=== PATIENT | male | born 1960 | race African-American/Black ===

== ENCOUNTER 2017-03-26 19:31 | Inpatient (IN) | payer MEDICAID ==
--- NOTE | 2017-03-26 19:38 | ED Physician Chart ---
ED Chief Complaint/HPI - Patient Information Date Seen:: 03/26/17 Time Seen:: 19:38 Chief Complaint:: Abnormal labs History of Present Illness:: 56 yo male was brought from [facility] to ER for evaluation of abnormal labs (Hb 7.5 and K 3). 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 He had a right arm PICC line and a G-tube. He reported urinary frequency. He denied any cough or fever. ED Review of Systems - Review of Systems General/Constitutional: No fever, Weakness Skin: No skin lesions Head: No headache Eyes: No pain ENT: No nasal drainage, Sore throat Neck: Neck pain Cardio Vascular: No chest pain Pulmonary: No SOB GI: No nausea, No vomiting Musculoskeletal: No bone or joint pain Neurological: No focal symptoms ED Past Medical History - Past Medical History Past Medical History: PUD/GERD, Other (mastoiditis, pharyngeal squamous cell carcinoma, spondylosis) Social History: Smoker (former smoker), No Alcohol, No Drug Use Psychiatricy History: Depression Family Medical History - Family Member Mother Ethnicity: Non- ED Physical Exam - Physical Examination General/Constitutional: Awake Eyes: PERRL Skin: No ecchymosis ENMT: Nasal exam nl Neck: No nuchal rigidity Respiratory: No Wheeze/Rhonchi/Rales Cardio Vascular: RRR, No murmur, gallop, rubs, NL S1 S2 GI: No tenderness/rebounding/guarding Extremities: normal strength in all extremities Neuro/Psych: No focal deficits ED Labs/Radiology/EKG Results - Radiology Results Results: CXR: no focal consolidation ED Assessment - Assessment General Assessment: Leukocytosis Normocytic anemia Malnutrition Hypokalemia Metastatic pharyngeal squamous cell carcinoma Assessment/Comments:: CBC, CMP, UA KCL 40mEq x 1 NS 1L IV bolus Vancomycin Admit to med surg ED Septic Shock - . Is Septic Shock (SBP<90, OR Lactate>4 mmol\L) present?: No ED Reassessment (Disposition) - Reassessment Reassessment Condition:: Improved - Patient Disposition Discharge/Transfer:: Acute Care w/in this hosp Admitting Medical Physician:: Maicol Holley ED Discharge Plan - Patient Disposition Admit/Discharge/Transfer: Acute Care w/in this hosp Condition at Disposition: Stable
[2017-03-26 20:11] LABS: % BASOPHILS 0.2 % (0.0-2.0); % EOSINOPHILS 0.3 % (0.0-5.0); % MONOCYTES 4.5 % (2.0-10.0); EOSINOPHILE ABSOLUTE 0.1 Th/cmm (0.1-0.4); HEMATOCRIT 26.6 % (41.0-60); MEAN CELL VOLUME 86.1 fl (80-99); MEAN CORPUSCULAR HEMOGLOBIN 29.2 pg (26.0-30.0); MEAN CORPUSCULAR HGB CONC 33.9 pg (28.0-36.0); MEAN PLATELET VOLUME 6.6 fl; MONOCYTE ABSOLUTE 0.8 Th/cmm (0.3-1.0); NEUTROPHILE ABSOLUTE 15.5 Th/cmm (1.8-8.0); PLATELET COUNT 176 Th/cmm (150-400); RED BLOOD COUNT 3.09 Mil/cmm (4.30-5.70); RED CELL DISTRIBUTION WIDTH 14.6 % (11.5-20.0)
[2017-03-26 20:19] LABS: WHITE BLOOD COUNT 18.4 Th/cmm (4.8-10.8)
[2017-03-26 20:22] LABS: ALB/GLOB RATIO 1.2 (1.0-1.8); ALBUMIN 3.6 gm/dL (4.2-5.5); ALKALINE PHOSPHATASE 103 U/L (34-104); ANION GAP 11.2 (7.0-16.0); BILIRUBIN,TOTAL 0.2 mg/dL (0.3-1.0); BUN - UREA NITROGEN 12 mg/dL (7-25); CALCIUM SERUM 8.4 mg/dL (8.6-10.3); CARBON DIOXIDE 29.9 mEq/L (21.0-31.0); CHLORIDE 100 mEq/L (98-107); CREATININE - SERUM 1.1 mg/dL (0.7-1.3); GFR AFRICAN-AMERICAN > 60.0 ml/min (>90); GFR NON AFRICAN-AMERICAN > 60.0 ml/min; GLUCOSE 103 mg/dL (70-105); POTASSIUM SERUM 3.1 mEq/L (3.5-5.1); SGOT 9 U/L (13-39); SGPT/ALT 7 U/L (7-52); SODIUM SERUM 138 mEq/L (136-145); TOTAL PROTEIN,SERUM 6.7 gm/dL (6.0-8.3)
[2017-03-26] MEDS ORDERED: Potassium Chloride 20 mEq ER Tab PO ONE ×2 (20:42)
[2017-03-26] MEDS ORDERED: Sodium Chloride 0.9% 1,000 ML IV SCH ×2 (20:45→21:00)
[2017-03-26] MEDS ORDERED: Magnesium Hydroxide (MOM) 30 mL UDC PO PRN (23:05)
[2017-03-26] MEDS ORDERED: Morphine 10 mg/5 ml 5mL UDC PO PRN (23:05)
[2017-03-27 01:47] VITALS: BP 144/72
[2017-03-27 03:53] LABS: URINE MICROSCOPIC INDICATED? YES; URINE SOURCE CLEAN C
[2017-03-27 03:59] LABS: URINE BILIRUBIN NEGATIVE (NEGATIVE); URINE BLOOD NEGATIVE (NEGATIVE); URINE GLUCOSE (UA) NEGATIVE (NEGATIVE); URINE KETONE NEGATIVE (NEGATIVE); URINE LEUKOCYTE ESTERASE NEGATIVE (NEGATIVE); URINE NITRATE NEGATIVE (NEGATIVE); URINE PH 6.5 (4.6 - 8.0); URINE PROTEIN TRACE mg/dL (NEGATIVE); URINE UROBILINOGEN 0.2 E.U./dL (0.2 - 1.0)
[2017-03-27 04:00] LABS: URINE CLARITY HAZY (CLEAR); URINE COLOR YELLOW
[2017-03-27 04:09] LABS: URINE EPITHELIAL CELLS OCCASIONAL /lpf (FEW)
[2017-03-27 04:10] LABS: URINE BACTERIA FEW /hpf (NONE SEEN)
[2017-03-27 05:07] LABS: % BASOPHILS 0.2 % (0.0-2.0); % EOSINOPHILS 0.3 % (0.0-5.0); % MONOCYTES 4.9 % (2.0-10.0); % NEUTROPHILS 84.6 % (40.0-80.0); HEMATOCRIT 25.3 % (41.0-60); HEMOGLOBIN 8.4 gm/dL (12-16); LYMPHOCYTE ABSOLUTE 1.6 Th/cmm (1.5-3.0); MEAN CELL VOLUME 86.5 fl (80-99); MEAN CORPUSCULAR HEMOGLOBIN 28.8 pg (26.0-30.0); MEAN CORPUSCULAR HGB CONC 33.3 pg (28.0-36.0); MEAN PLATELET VOLUME 6.2 fl; MONOCYTE ABSOLUTE 0.8 Th/cmm (0.3-1.0); NEUTROPHILE ABSOLUTE 13.6 Th/cmm (1.8-8.0); PLATELET COUNT 194 Th/cmm (150-400); RED BLOOD COUNT 2.93 Mil/cmm (4.30-5.70); RED CELL DISTRIBUTION WIDTH 14.5 % (11.5-20.0)
[2017-03-27 06:22] LABS: ALB/GLOB RATIO 1.2 (1.0-1.8); ALBUMIN 3.3 gm/dL (4.2-5.5); ALKALINE PHOSPHATASE 94 U/L (34-104); ANION GAP 10.6 (7.0-16.0); BILIRUBIN,TOTAL 0.2 mg/dL (0.3-1.0); CALCIUM SERUM 7.4 mg/dL (8.6-10.3); CARBON DIOXIDE 29.5 mEq/L (21.0-31.0); CHLORIDE 101 mEq/L (98-107); CREATININE - SERUM 0.8 mg/dL (0.7-1.3); GFR AFRICAN-AMERICAN > 60.0 ml/min (>90); GFR NON AFRICAN-AMERICAN > 60.0 ml/min; GLUCOSE 99 mg/dL (70-105); POTASSIUM SERUM 4.1 mEq/L (3.5-5.1); SGOT 8 U/L (13-39); SGPT/ALT 6 U/L (7-52); SODIUM SERUM 137 mEq/L (136-145)
[2017-03-27 07:21] LABS: BUN - UREA NITROGEN 9 mg/dL (7-25)
[2017-03-27] MEDS ORDERED: Pantoprazole 40 mg EC Tab PO SCH (09:00)
[2017-03-27] MEDS ORDERED: Nicotine 7 mg/24 hr Tdm TD SCH (09:00)
[2017-03-27] MEDS ORDERED: Non-Formulary Item 1 EA (Vitamin B Complex [Vitamin B Complex] 1 TAB) PO SCH (09:00)
[2017-03-27] MEDS ORDERED: Vitamin B Complex w/Vitamin C Tab PO SCH (09:00)
--- NOTE | 2017-03-27 09:14 | Diagnostic Imaging Report ---
CHEST X-RAY: AP view INDICATION: Shortness of breath COMPARISON: None FINDINGS: Right PICC line is seen with tip in SVC. Chronic lung changes are noted. There is no focal consolidation or pleural effusions The heart is normal in size. The osseous structures demonstrate no acute abnormalities. IMPRESSION: Chronic lung changes with no focal consolidation or evidence of CHF. Right PICC line with tip in SVC.
--- NOTE | 2017-03-27 11:19 | History and Physical ---
History of Present Illness - HPI Chief Complaint: Low hemoglobin and high WBC HPI: This is a patient with Hx of scamous cell carcinoma in chemo. I follow this patient at [facility], I received a phone call from [facility] stating that Hgb was 7.5, an order to tranfered patient to ER was done for transfusion. n In ER labs were done and was found Hgb above 8 but high WBC, he was hospitalized for IV antibiotics. Vital Signs: Last Vital Signs Temp 98.9 F 03/27/17 04:00 Pulse 88 03/27/17 04:00 Resp 20 03/27/17 04:00 BP 144/72 03/27/17 01:47 Pulse Ox 98 03/27/17 04:00 Past Medical History Cardiovascular: Report: No Pertinent Hx Pulmonary: Report: No Pertinent Hx [employer]: Report: No Pertinent Hx GI: Report: No Pertinent Hx Psych: Report: No Pertinent Hx Musculoskeletal: Report: No Pertinent Hx Rheumatologic: Report: No pertinent Hx Infectious Disease: Report: No Pertinent Hx Renal/: Report: No Pertinent Hx Endocrine: Report: No Pertinent Hx Dermatology: Report: No Pertinent Hx - Past Surgical History Past Surgical History: Other (Metastatic Scamous cell carcinoma of troath) Family Medical History - Family Member Mother History Unknown: Yes Ethnicity: Non- Social History Smoke: No Alcohol: None Drugs: None Lives: [facility] Domestic Violence: Negative - Medications Home Medications: Home Medication Medication Instructions Recorded Type Acetaminophen [Tylenol Extra 2 tab PO Q8HR PRN 03/26/17 History Strength] Acetaminophen [Tylenol] 650 mg PO Q4HR PRN 03/26/17 History Cyanocobalamin (Vitamin B-12) 1,000 mcg PO DAILY 03/26/17 History [Vitamin B-12] Loperamide [Imodium] 2 mg PO Q6HR PRN 03/26/17 History Magnesium Hydroxide [Milk of 30 ml PO DAILY PRN 03/26/17 History Magnesia] Morphine [Morphine*] 10 mg PO Q6HR PRN 03/26/17 History Nicotine 7 mg/24 hr [Nicotine 1 patch TD DAILY 03/26/17 History Transdermal System] Omeprazole 40 mg PO DAILY 03/26/17 History Ondansetron [Zofran ODT] 4 mg PO Q6HR PRN 03/26/17 History Sertraline [Zoloft] 50 mg PO DAILY 03/26/17 History Vitamin B Complex 1 tab PO DAILY 03/26/17 History cefTRIAXone [Rocephin] 1 gm IV Q12HR 03/26/17 History - Allergies Allergies/Adverse Reactions: Allergies Allergy/AdvReac Type Severity Reaction Status Date / Time No Known Allergies Allergy Verified 03/26/17 19:47 Review of Systems - Review of Systems Constitutional: Report: Weakness Eyes: Report: No Significant ENT: Report: Throat Pain Respiratory: Report: No Significant Cardiovascular: Report: No Significant Gastrointestinal: Report: No Significant Genitourinary: Report: No Significant Musculoskeletal: Report: No Significant Skin: Report: No Significant Neurological: Report: Weakness Physical Exam - Physical Exam HEENT: Report: Other ([place]roath cancer) Neck: Report: Lymphadenopathy noted on the right side Cardiovascular Systems: Report: Regular, Rate and Rhythm Respiratory: Report: Breath Sounds are within normal limits Abdomen: Report: Non-tender to palpation Back: Report: Inspection of back is within normal limits. Extremities: Report: Non-tender to palpation. Skin: Report: Color of skin is within normal limits Neuro/Psych: Report: Mood affect is within normal limits - Lab Results All Lab Results last 24 hours: Laboratory Results - last 24 hr 03/26/17 03/27/17 03/27/17 20:58 00:50 05:00 WBC 16.0 H RBC 2.93 L Hgb 8.4 L Hct 25.3 L MCV 86.5 MCH 28.8 MCHC Differential 33.3 RDW 14.5 Plt Count 194 MPV 6.2 Neutrophils % 84.6 H Lymphocytes % 10.0 L Monocytes % 4.9 Eosinophils % 0.3 Basophils % 0.2 Sodium Potassium Chloride Carbon Dioxide Anion Gap BUN Creatinine Est GFR ( Amer) Est GFR (Non-Af Amer) BUN/Creatinine Ratio Glucose Whole Bld Lactic Acid 1.85 Calcium Total Bilirubin AST ALT Alkaline Phosphatase Total Protein Albumin Globulin Albumin/Globulin Ratio Urine Source CLEAN C Urine Color YELLOW Urine Clarity HAZY Urine pH 6.5 Ur Specific [place] 1.020 Urine Protein TRACE Urine Glucose (UA) NEGATIVE Urine Ketones NEGATIVE Urine Blood NEGATIVE Urine Nitrate NEGATIVE Urine Bilirubin NEGATIVE Urine Urobilinogen 0.2 Ur Leukocyte Esterase NEGATIVE Urine RBC 2-5 H Urine WBC 2-5 H Ur Epithelial Cells OCCASIONAL Urine Bacteria FEW 03/27/17 05:00 WBC RBC Hgb Hct MCV MCH MCHC Differential RDW Plt Count MPV Neutrophils % Lymphocytes % Monocytes % Eosinophils % Basophils % Sodium 137 Potassium 4.1 Chloride 101 Carbon Dioxide 29.5 Anion Gap 10.6 BUN 9 Creatinine 0.8 Est GFR ( Amer) > 60.0 Est GFR (Non-Af Amer) > 60.0 BUN/Creatinine Ratio 11.3 Glucose 99 Whole Bld Lactic Acid Calcium 7.4 L Total Bilirubin 0.2 L AST 8 L ALT 6 L Alkaline Phosphatase 94 Total Protein 6.0 Albumin 3.3 L Globulin 2.7 Albumin/Globulin Ratio 1.2 Urine Source Urine Color Urine Clarity Urine pH Ur Specific [place] Urine Protein Urine Glucose (UA) Urine Ketones Urine Blood Urine Nitrate Urine Bilirubin Urine Urobilinogen Ur Leukocyte Esterase Urine RBC Urine WBC Ur Epithelial Cells Urine Bacteria - Assessment Assessment: Patient is awake, alert, calm in no acute distress. WBC improved. Dx: Leukocytosis, Metastatic scamous cell carcinoma, mastoiditis - Plan Plan: Patient is continue with SNF meds, on Vanco and sozyn. Patient will be discharge today.
[2017-03-27] MEDS ORDERED: VTE Chemical Prophylaxis Screen/Admission MC PRN (14:00)
--- NOTE | 2017-03-28 10:23 | Discharge Summary ---
General Discharge Summary - Discharge Summary Date of Admission: 03/26/17 Admitting Diagnosis: Leukocytosis, scamous cell carcinoma Discharge Date: 03/27/17 Discharge Diagnosis: Leukocytosis, [place] scamous cell carcinoma Laboratory Findings: Laboratory Tests 03/26/17 03/27/17 03/27/17 20:58 00:50 05:00 WBC 16.0 H RBC 2.93 L Hgb 8.4 L Hct 25.3 L MCV 86.5 MCH 28.8 MCHC Differential 33.3 RDW 14.5 Plt Count 194 MPV 6.2 Neutrophils % 84.6 H Lymphocytes % 10.0 L Monocytes % 4.9 Eosinophils % 0.3 Basophils % 0.2 Sodium Potassium Chloride Carbon Dioxide Anion Gap BUN Creatinine Est GFR ( Amer) Est GFR (Non-Af Amer) BUN/Creatinine Ratio Glucose Whole Bld Lactic Acid 1.85 Calcium Total Bilirubin AST ALT Alkaline Phosphatase Total Protein Albumin Globulin Albumin/Globulin Ratio Urine Source CLEAN C Urine Color YELLOW Urine Clarity HAZY Urine pH 6.5 Ur Specific [place] 1.020 Urine Protein TRACE Urine Glucose (UA) NEGATIVE Urine Ketones NEGATIVE Urine Blood NEGATIVE Urine Nitrate NEGATIVE Urine Bilirubin NEGATIVE Urine Urobilinogen 0.2 Ur Leukocyte Esterase NEGATIVE Urine RBC 2-5 H Urine WBC 2-5 H Ur Epithelial Cells OCCASIONAL Urine Bacteria FEW 03/27/17 05:00 WBC RBC Hgb Hct MCV MCH MCHC Differential RDW Plt Count MPV Neutrophils % Lymphocytes % Monocytes % Eosinophils % Basophils % Sodium 137 Potassium 4.1 Chloride 101 Carbon Dioxide 29.5 Anion Gap 10.6 BUN 9 Creatinine 0.8 Est GFR ( Amer) > 60.0 Est GFR (Non-Af Amer) > 60.0 BUN/Creatinine Ratio 11.3 Glucose 99 Whole Bld Lactic Acid Calcium 7.4 L Total Bilirubin 0.2 L AST 8 L ALT 6 L Alkaline Phosphatase 94 Total Protein 6.0 Albumin 3.3 L Globulin 2.7 Albumin/Globulin Ratio 1.2 Urine Source Urine Color Urine Clarity Urine pH Ur Specific [place] Urine Protein Urine Glucose (UA) Urine Ketones Urine Blood Urine Nitrate Urine Bilirubin Urine Urobilinogen Ur Leukocyte Esterase Urine RBC Urine WBC Ur Epithelial Cells Urine Bacteria Hospital Course: Patient was admitted and started in IV NS, Vanco and Zosyn, regular diet and continue with SNF meds. Same day patient was DC to SNF to continue with IV AB. Treatment: IV NS, AB, SNF meds Disposition: Discharge/Transfered to SNF Home Medications: Home Medication Medication Instructions Recorded Type Acetaminophen [Tylenol Extra 2 tab PO Q8HR PRN 03/26/17 History Strength] Acetaminophen [Tylenol] 650 mg PO Q4HR PRN 03/26/17 History Cyanocobalamin (Vitamin B-12) 1,000 mcg PO DAILY 03/26/17 History [Vitamin B-12] Loperamide [Imodium] 2 mg PO Q6HR PRN 03/26/17 History Magnesium Hydroxide [Milk of 30 ml PO DAILY PRN 03/26/17 History Magnesia] Morphine [Morphine*] 10 mg PO Q6HR PRN 03/26/17 History Nicotine 7 mg/24 hr [Nicotine 1 patch TD DAILY 03/26/17 History Transdermal System] Omeprazole 40 mg PO DAILY 03/26/17 History Ondansetron [Zofran Odt] 4 mg PO Q6HR PRN 03/26/17 History Sertraline [Zoloft] 50 mg PO DAILY 03/26/17 History Vitamin B Complex 1 tab PO DAILY 03/26/17 History cefTRIAXone [Rocephin] 1 gm IV Q12HR 03/26/17 History Piperacillin Sodium/Tazobact 3.375 gm IV Q6HR vial 03/27/17 Rx [Zosyn] Vancomycin HCl [Vancomycin] 1.25 gm IV Q12HR vial 03/27/17 Rx Vitamin B Complex w/Vitamin C 1 tab PO DAILY tab 03/27/17 Rx Activity: As Tolerated Discharge Diet: 2 Gram Sodium Consults and Follow-Up: not on staff,PCP is [Primary Care Provider] - Consulting Speciality: Oncology Instructions: Hypokalemia, Leukocytosis
== END 2017-03-27 16:55 | disposition home or self-care (01) | DRG 663 ==
LOC: ER 19:31 → MSI 20:35
PROVIDERS: ADMIT General Practice; ATTEND General Practice
DX: D72.829 Elevated white blood cell count, unspecified (principal); C79.9 Secondary malignant neoplasm of unspecified site; C14.0 Malignant neoplasm of pharynx, unspecified; H70.90 Unspecified mastoiditis, unspecified ear; F17.210 Nicotine dependence, cigarettes, uncomplicated; K21.9 Gastro-esophageal reflux disease without esophagitis; M47.9 Spondylosis, unspecified; F32.9 Major depressive disorder, single episode, unspecified; Z92.21 Personal history of antineoplastic chemotherapy; Z79.899 Other long term (current) drug therapy
CPT/HCPCS: 36415-UA; 71045-TC; 80053-TC; 81001-TC; 83605; 85025-TC; 93005; J2543; J3370; J7030; Z7610